=== PATIENT | male | born 2000 | race Caucasian/White ===

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

== ENCOUNTER 2019-04-18 22:01 | Emergency (ER) | payer MEDICAID ==
[~2019-04-18] VITALS: Ht 172.7 cm; Wt 83.0 kg
[~2019-04-18 22:01] MED LIST: ALPR-394 PO; AMOX1TAB16 PO; FLUT15.844 BOTHNSTRLS; HYDR-4001 PO
[2019-04-18 22:52] VITALS: BP 115/75
== END 2019-04-19 01:06 | disposition left against medical advice (07) ==
LOC: ER 22:01
DX: Z53.21 Procedure and treatment not carried out due to patient leaving prior to being seen by health care provider (principal)

== ENCOUNTER 2019-04-19 23:49 | Emergency (ER) | payer MEDICAID ==
[~2019-04-19] VITALS: Ht 175.3 cm; Wt 83.0 kg
[2019-04-20] MEDS ORDERED: ACETAMINOPHEN 325MG TABLET PO ONE (01:15)
[2019-04-20 01:42] VITALS: BP 141/87
== END 2019-04-20 01:46 | disposition home or self-care (01) ==
LOC: ER 23:49
DX: H93.19 Tinnitus, unspecified ear (principal); Z79.899 Other long term (current) drug therapy; Z98.890 Other specified postprocedural states
CPT/HCPCS: 99282

== ENCOUNTER 2019-07-21 06:44 | Emergency (ER) | payer MEDICAID ==
[~2019-07-21] VITALS: Ht 175.3 cm; Wt 81.4 kg
[2019-07-21 06:50] VITALS: BP 135/75
== END 2019-07-21 07:07 | disposition home or self-care (01) ==
LOC: ER 06:44
DX: R09.81 Nasal congestion (principal)
CPT/HCPCS: 99282